=== PATIENT | female | born 1970 | race Caucasian/White ===

== ENCOUNTER 2017-06-29 12:37 | Outpatient (CLI) | payer BC, OTHER ==
--- NOTE | 2017-06-29 13:56 | Ultrasound Report ---
RENAL ULTRASOUND: 06/29/2017 CLINICAL INDICATION: Ectopic kidney. TECHNIQUE: Real-time sonographic vascular imaging was performed by the property management accountant through the kidney s utilizing both color-flow and Doppler spectral analysis. Multiple account services representative static images wer e saved for review. FINDINGS: There is a crossed fused ectopia present, with the right portion of the renal moiety measu ring 14 x 6.3 x 4.6 cm, and the left portion, anterior to the spine, measuring 8.2 x 3.6 x 2.9 cm. Th ere is mild dilatation of the renal pelves, without radha hydronephrosis. No solid renal lesion is id entified. Prevoid, the bladder measures 10.1 x 5.3 x 8.8 cm, yielding a prevoid volume of 243 mL. A 12 mL postv oid residual is noted. No focal bladder lesion is seen. Bilateral ureteral jets are identified. 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 NO SOLID RENAL MASS IS APPRECIATED. NO SIGNIFICANT POSTVOID RESIDUAL. JOB #: [id number] EXT JOB #:[id number]
== END 2017-06-29 12:38 | disposition home or self-care (01) ==
LOC: DI 12:37
PROVIDERS: ATTEND Physician Assistant
DX: R07.9 Chest pain, unspecified (principal); Q63.2 Ectopic kidney; E78.5 Hyperlipidemia, unspecified; Z82.49 Family history of ischemic heart disease and other diseases of the circulatory system
CPT/HCPCS: 76770; 93306

== ENCOUNTER 2017-07-05 09:19 | Outpatient (CLI) | payer OTHER ==
--- NOTE | 2017-07-06 17:18 | Mammography Report ---
DIGITAL SCREENING MAMMOGRAM: 07/05/2017 CLINICAL INDICATION: A 46-year-old with history of benign left breast biopsy, bilateral implants for screening. TECHNIQUE: Routine CC and MLO projections as well as bilateral implant displaced views were obtained of the breasts. COMPARISON: 07/25/2013 The breasts demonstrate scattered fibroglandular densities bilaterally. Bilateral subglandular silic one implants are stable. A few punctate, typically benign calcifications are present. No suspicious masses, clustered microcalcifications, or regions of architectural distortion are identified. IMPRESSION: BENIGN FINDINGS. RECOMMENDATION: ROUTINE ANNUAL SCREENING UNLESS OTHERWISE CLINICALLY INDICATED. BIRADS CATEGORY: 2, BENIGN FINDINGS. STANDARD QUALIFYING STATEMENTS 1. This examination was reviewed with the aid of Computed-Aided Detection (CAD). 2. A negative or benign imaging report should not delay biopsy if clinically suspicious findings are present. Consider surgical consultation if warranted. More than 5% of cancers are not identified b y imaging. 3. Dense breasts may obscure an underlying neoplasm. JOB #: [id number] EXT JOB #:[id number]
== END 2017-07-05 09:20 | disposition home or self-care (01) ==
LOC: DI 09:19 → DI.S 09:20
PROVIDERS: ATTEND Physician Assistant
DX: Z12.31 Encounter for screening mammogram for malignant neoplasm of breast (principal)
CPT/HCPCS: 77067

== ENCOUNTER 2018-12-14 13:07 | Outpatient (CLI) | payer BC ==
--- NOTE | 2018-12-14 15:48 | XRAY Report ---
Reason: UNSPECIFIED INJURY OF LEFT LOWER LEG Procedure Date: 12/14/2018 Accession Number: [id number] / [id number] Procedure: XR - Tib/Fib LT CPT Code: FULL RESULT: EXAM: LEFT TIBIA/FIBULA RADIOGRAPHY EXAM DATE: 12/14/2018 01:19 PM. CLINICAL HISTORY: Impact injury of left lower leg with large hematoma. Injury two weeks ago. COMPARISON: None. TECHNIQUE: 2 views. FINDINGS: Bones: Normal. No fracture or bone lesion. Joints: The visualized knee and ankle joints are normal. No effusions. Soft Tissues: Normal. No soft tissue swelling. IMPRESSION: Normal tibia/fibula radiography. RADIA
== END 2018-12-14 13:08 | disposition home or self-care (01) ==
LOC: DI 13:07
PROVIDERS: ATTEND Physician Assistant
DX: S89.92XA Unspecified injury of left lower leg, initial encounter (principal)

== ENCOUNTER 2018-12-28 07:12 | Outpatient (CLI) | payer BC ==
--- NOTE | 2018-12-29 06:51 | Ultrasound Report ---
Reason: ECTOPIC KIDNEY,UNSPECIFIED INJURY OF LEFT LOWER LE Procedure Date: 12/28/2018 Accession Number: [id number] / [id number] Procedure: US - Retroperitoneal CPT Code: FULL RESULT: EXAM: RENAL ULTRASOUND EXAM DATE: 12/28/2018 08:16 AM. CLINICAL HISTORY: Ectopic kidney, left lower extremity injury. COMPARISON: RETROPERITONEAL 06/29/2017 12:48 PM. TECHNIQUE: Real-time scanning was performed with static images obtained. FINDINGS: Cross fused renal ectopia are present with a component in the right renal fossa and the left component anterior to the spine as before. Right component: 12.3 x 4.8 x 5.9 cm. No calculi, masses or hydronephrosis. Left component: 10.0 x 4.0 x 4.9 cm. Asymmetrically small. No calculi, masses or hydronephrosis evident. Bladder: Two right sided ureteral jets are visible. The prevoid bladder volume was 275 cc. The postvoid bladder volume was 22 cc. Other: None. IMPRESSION: Cross fused renal ectopia as before without evidence of hydronephrosis. No masses or calculi. RADIA
== END 2018-12-28 07:13 | disposition home or self-care (01) ==
LOC: DI 07:12
PROVIDERS: ATTEND Physician Assistant
DX: Q63.2 Ectopic kidney (principal)
CPT/HCPCS: 76770

== ENCOUNTER 2019-01-24 14:31 | Outpatient (CLI) | payer BC ==
--- NOTE | 2019-01-25 11:15 | Mammography Report ---
Reason: ENCOUNTER FOR SCREENING MAMMOGRAM FOR MALIGNANT NE Procedure Date: 01/24/2019 Accession Number: [id number] / [id number] Procedure: [facility] - Screening Mammo Impl w/El CPT Code: FULL RESULT: EXAM: Screening Mammo Impl w/El DATE: 01/24/2019 3:01 PM CLINICAL HISTORY: Routine screening TECHNIQUE: (B) - Bilateral CC and MLO views were obtained. Additional bilateral implant displaced views are performed. COMPARISON: 07/05/2017 and 07/25/2013 PARENCHYMAL PATTERN: (A) - The breasts demonstrate scattered fibroglandular densities bilaterally. FINDINGS: There is no significant interval change. There are no suspicious masses, calcifications, or areas of distortion. Bilateral implants are stable. IMPRESSION: Negative examination. BI-RADS category 1. RECOMMENDATION: (ANNUAL) - Recommend routine annual screening mammography. BI-RADS CATEGORY: (1) - Negative. STANDARD QUALIFYING STATEMENTS: 1. This examination was not reviewed with the aid of Computer-Aided Detection (CAD). 2. A negative or benign imaging report should not preclude biopsy if clinically suspicious findings are present. 3. Dense breasts may obscure an underlying neoplasm. 4. This examination was reviewed with the aid of 3D breast imaging (tomosynthesis).
== END 2019-01-24 14:32 | disposition home or self-care (01) ==
LOC: DI 14:31
PROVIDERS: ATTEND Physician Assistant
DX: Z12.31 Encounter for screening mammogram for malignant neoplasm of breast (principal)
CPT/HCPCS: 77063; 77067

== ENCOUNTER 2020-06-12 11:44 | Outpatient (CLI) | payer BC ==
--- NOTE | 2020-06-12 14:32 | CARDIAC PROCEDURE NOTE ---
DATE OF SERVICE: 06/12/2020 Physician: Christina Sánchez MD, [facility] INDICATION: Shortness of breath. CARDIAC RISK FACTORS: Postmenopausal status, current smoker, elevated cholesterol, family history of early heart disease (in her father who had an VT at age 50). PROCEDURE: After signing informed consent, the patient underwent a Chaim- protocol treadmill stress test. No imaging was ordered with this test. RESTING HEART RATE: 82. PEAK HEART RATE: 150 (90% predicted maximum heart rate for age). RESTING BLOOD PRESSURE: 124/76. PEAK BLOOD PRESSURE: 160/83, which occurred in early recovery; her blood pressure in the final stage of exercise was 152/76. The patient exercised for 3 minutes 20 seconds on a Chaim-protocol treadmill stress test. She achieved a peak heart rate of 150 (90% PMHR) and 7 METs. She developed fatigue and shortness of breath quickly, rated her perceived exertion at 18/20 on the Ken scale at peak. She denied any chest pain. She had significant shortness of breath at peak. Oxygen saturation was 97-98% on room air throughout the test. RESTING EKG: Normal sinus rhythm, inverted T-wave in lead III and flat T-wave in aVF. EKG AT PEAK: No new ST segment or T-wave changes. SUMMARY 1. Mildly abnormal resting EKG. 2. Poor exercise tolerance. 3. No ischemic changes noted by EKG criteria on this stress test at an adequate level of stress achieved. 4. No imaging was ordered with this test. 5. This patient's cardiac risk based on all the above: Moderate (due to her risk factors). RECOMMENDATIONS 1. Cigarette smoking cessation should be done and was discussed with the patient. 2. Recommend pulmonary function testing and Echocardiogram. cc: RENEE Lanier TD: 06/12/2020 13:38 ISAIAH
== END 2020-06-12 11:45 | disposition home or self-care (01) ==
LOC: DI 11:44
PROVIDERS: ATTEND Registered Nurse
DX: R94.31 Abnormal electrocardiogram [ECG] [EKG] (principal); E78.00 Pure hypercholesterolemia, unspecified; F17.200 Nicotine dependence, unspecified, uncomplicated; Z82.49 Family history of ischemic heart disease and other diseases of the circulatory system; Z78.0 Asymptomatic menopausal state
CPT/HCPCS: 93016; 93017; 93018

== ENCOUNTER 2020-07-03 08:26 | Outpatient (CLI) | payer BC ==
[2020-07-03 15:27] LABS: BASOPHILS % (AUTO) 0.6 %; EOSINOPHILS # (AUTO) 0.1 10^3/uL (0.0-0.7); EOSINOPHILS % (AUTO) 1.7 %; HGB - HEMOGLOBIN 13.2 g/dL (12.0-16.0); LYMPHOCYTES % (AUTO) 46.3 %; MEAN CORPUSCULAR HEMOGLOBIN 31.8 pg (27.0-31.0); MEAN CORPUSCULAR HGB CONC 32.8 g/dL (32.0-36.0); MEAN CORPUSCULAR VOLUME 97.1 fL (81.0-99.0); MEAN PLATELET VOLUME 9.3 fL (7.9-10.8); MONOCYTES # (AUTO) 0.4 10^3/uL (0.0-1.0); NEUTROPHILS % (AUTO) 45.1 %; PLT - PLATELET COUNT 364 10^3/uL (130-450); RED BLOOD COUNT 4.15 10^6/uL (4.20-5.40); RED CELL DISTRIBUTION WIDTH 12.6 % (12.0-15.0); WHITE BLOOD COUNT 6.6 x10^3/uL (4.8-10.8)
== END 2020-07-03 08:27 | disposition home or self-care (01) ==
LOC: LAB.S 08:26
PROVIDERS: ATTEND Registered Nurse
DX: R06.09 Other forms of dyspnea (principal)
CPT/HCPCS: 36415; 85025

== ENCOUNTER 2020-07-25 09:25 | Outpatient (CLI) | payer BC | END 2020-07-25 09:26 | disposition home or self-care (01) | LOC: RT 09:25 | PROVIDERS: ATTEND Registered Nurse | DX: R06.09 Other forms of dyspnea (principal) | CPT/HCPCS: 94060 ==

== ENCOUNTER 2020-07-28 09:07 | Outpatient (CLI) | payer BC ==
--- NOTE | 2020-07-29 14:37 | Mammography Report ---
BILATERAL DIGITAL SCREENING MAMMOGRAM 3D/2D WITH AUGMENTATION: 07/28/2020 CLINICAL: Routine screening. Comparison is made to exams dated: 01/24/2019 mammogram, 07/05/2017 mammogram, and 07/25/2013 mammogra m - [facility]. There are scattered fibroglandular elements in both breasts. Bilateral breast implants are stable. No significant masses, calcifications, or other findings are seen in either breast. There has been no significant interval change. IMPRESSION: NEGATIVE There is no mammographic evidence of malignancy. A 1 year screening mammogram is recommended. This exam was interpreted at Station ID: [id number]. NOTE: For mammograms, a report in lay terms will be sent to the patient. Approximately 15% of breast malignancies will not be visualized mammographically. In the management of a palpable breast mass, a negative mammogram must not discourage biopsy of a clinically suspicious lesion. Electronically Signed By: Prosper Sloan M.D. [facility] [place]:07/28/2020 14:57:36 ACR BI-RADS Category 1: Negative 3341F PARENCHYMAL PATTERN: (A) - The breast(s) demonstrate(s) scattered fibroglandular densities. BI-RADS CATEGORY: (1) - 1 RECOMMENDATION: (ANNUAL) - Recommend routine annual screening mammography. [id number] 1 year screening LATERALITY: (B)
== END 2020-07-28 09:08 | disposition home or self-care (01) ==
LOC: DI 09:07
PROVIDERS: ATTEND Registered Nurse
DX: Z12.31 Encounter for screening mammogram for malignant neoplasm of breast (principal); Z98.82 Breast implant status
CPT/HCPCS: 77063; 77067

== ENCOUNTER 2020-09-03 06:32 | Day surgery (SDC) | payer BC ==
[2020-09-03] MEDS ORDERED: fentaNYL 250 MCG/5 ML VIAL IVP ONE (06:33)
[2020-09-03] MEDS ORDERED: MIDAZOLAM 2 MG/2 ML VIAL IVP ONE (06:33)
[2020-09-03] MEDS ORDERED: LACTATED RINGERS 1,000 ML IV ONE ×2 (06:33→08:13)
[2020-09-03 08:37] VITALS: BP 116/86
== END 2020-09-03 06:33 | disposition home or self-care (01) ==
LOC: SDS 06:32
PROVIDERS: ATTEND Surgery
DX: Z12.11 Encounter for screening for malignant neoplasm of colon (principal); F17.210 Nicotine dependence, cigarettes, uncomplicated

== ENCOUNTER 2023-04-06 09:56 | Outpatient (CLI) | payer BC ==
--- NOTE | 2023-04-07 13:25 | Mammography Report ---
BILATERAL DIGITAL SCREENING MAMMOGRAM 3D/2D WITH AUGMENTATION: 04/06/2023 CLINICAL: Routine screening. Family history of breast cancer. Comparison is made to exams dated: 07/28/2020 mammogram, 01/24/2019 mammogram, and 07/05/2017 mammogram - [facility]. There are scattered areas of fibroglandular density in both breasts (category b / 25%-50% glandular t issue). Bilateral breast implants are stable. No significant masses, calcifications, or other findings are seen in either breast. There has been no significant interval change. IMPRESSION: NEGATIVE There is no mammographic evidence of malignancy. A 1 year screening mammogram is recommended. Based on the Tyrer Cuzick model (a risk assessment model) the patients lifetime risk is 7.5% and her 10 year risk is 2.0%. According to the ACR, ACS, and NCCN guidelines, an annual breast MRI exam to g with mammogram is recommended if the patients lifetime risk is 20% or greater. This exam was interpreted at Station ID: [id number]. NOTE: For mammograms, a report in lay terms will be sent to the patient. Approximately 15% of breast malignancies will not be visualized mammographically. In the management of a palpable breast mass, a negative mammogram must not discourage biopsy of a clinically suspicious lesion. Electronically Signed By: Chapito brar/umesh:04/06/2023 13:10:43 letter sent: No_Letter ACR BI-RADS Category 1: Negative 3341F PARENCHYMAL PATTERN: (A) - The breast(s) demonstrate(s) scattered fibroglandular densities. BI-RADS CATEGORY: (1) - 1 Mammogram [id number] 1 year screening LATERALITY: (B)
== END 2023-04-06 09:57 | disposition home or self-care (01) ==
LOC: DI.S 09:56
DX: Z12.31 Encounter for screening mammogram for malignant neoplasm of breast (principal); Z80.3 Family history of malignant neoplasm of breast

== ENCOUNTER 2023-07-25 09:45 | Outpatient (CLI) | payer BC ==
--- NOTE | 2023-07-25 11:23 | CT Report ---
PROCEDURE: Low Dose Lung Cancer Screen INDICATIONS: SMOKER TECHNIQUE: A CT scan of the chest was performed. Intravenous contrast media was not administered. Images were re corded and evaluated at appropriate window settings. Reformats: axial MIP of the chest, coronal and s agittal. For radiation dose reduction, the following was used: automated exposure control, adjustment of mA and/or kV according to patient size. COMPARISON: None. FINDINGS: Image quality: Excellent. Prior cancer history: No. Lungs and pleura: No pleural effusions. No pneumothorax. No suspicious pulmonary nodules which requi re follow up. Mediastinum: Heart size is normal. No pericardial effusion. No large vessel abnormality. No mediastin al adenopathy by size criteria. Chest wall and lower neck: Thyroid is unremarkable. No axillary or supraclavicular adenopathy by size . Bones: No aggressive osseous abnormality. Upper Abdomen: Hepatic steatosis. 3.9 cm cyst in segment 2. A couple of hypoattenuating lesions at th e liver dome, measuring 2.0 cm (series 2, image 45) and 2.3 cm (series 2, image 48). Left nephrectomy . IMPRESSION: Lung RAD: 1 - Negative. Recommendation: Continue annual screening in 12 Months with LDCT Non-Lung Significant Findings: Mass - Liver. While this finding could represent focal sparing of stea tosis or a benign hemangioma, given underlying steatosis, recommend MRI with contrast (liver mass pro tocol). Reviewed by: Landen Bhatti on 07/25/2023 11:22 AM PDT Approved by: Landen Bhatti on 07/25/2023 11:22 AM PDT Station ID: [id number]
== END 2023-07-25 09:46 | disposition home or self-care (01) ==
LOC: DI 09:45
PROVIDERS: ATTEND Registered Nurse
DX: Z12.2 Encounter for screening for malignant neoplasm of respiratory organs (principal); F17.200 Nicotine dependence, unspecified, uncomplicated

== ENCOUNTER 2023-07-26 08:49 | Outpatient (CLI) | payer BC ==
--- NOTE | 2023-07-26 15:24 | XRAY Report ---
PROCEDURE: Chest 2 View X-Ray INDICATIONS: PRE SURGERY EVALUATION TECHNIQUE: 2 views of the chest were acquired. COMPARISON: None. FINDINGS: Surgical changes and devices: None. Lungs and pleura: No pleural effusions or pneumothorax. Lungs are clear. Mediastinum: Mediastinal contours appear normal. Heart size is normal. Bones and chest wall: No suspicious bony lesions. Overlying soft tissues appear unremarkable. IMPRESSION: No acute cardiopulmonary process. Reviewed by: Yuki Lou MD on 07/26/2023 3:22 PM PDT Approved by: Yuki Lou MD on 07/26/2023 3:22 PM PDT Station ID: [id number]
== END 2023-07-26 08:50 | disposition home or self-care (01) ==
LOC: DI.S 08:49
PROVIDERS: ATTEND Registered Nurse
DX: Z01.818 Encounter for other preprocedural examination (principal)

== ENCOUNTER 2023-08-26 12:51 | Outpatient (CLI) | payer BC ==
[~2023-08-26 12:51] MED LIST: GADOTERATE MEGLUMINE 10 MMOL/20 ML VIAL ONE
[2023-08-26] MEDS ORDERED: GADOTERATE MEGLUMINE 10 MMOL/20 ML VIAL IVP ONE (13:48)
--- NOTE | 2023-08-29 12:12 | MRI Report ---
PROCEDURE: ABDOMEN W/WO INDICATIONS: LIVER MASS CONTRAST: clariscan 17.6 TECHNIQUE: Coronal ultra fast SE, axial 2D spoiled GE in- and [id number]; axial breath-hold T2 fast SE. Dynam ic axial ultra fast GE during the administration of contrast; post-contrast coronal ultra fast GE or 2D spoiled GE with fat saturation from the hepatic dome to the iliac crests. Optional diffusion weig hted imaging and ADC may be performed. COMPARISON: Ultrasound 06/19/2020 FINDINGS: Image quality: Excellent. Lung bases and heart: Unremarkable. Liver: Marked hepatic steatosis. Benign hepatic cyst measuring 4.0 cm in segment 2 (series 4, image 8 ). There are multiple liver lesions which demonstrate imaging characteristics is most consistent with hemangiomas. These are T2 intermediate, with either flash filling or discontinuous arterial enhancem ent with delayed filling. These include: -1.6 cm in segment 8 (series 4, image 6). -1.0 cm in segment 2 (series 4, image 7). -2.2 cm in segment 7/8 (series 4, image 9). -0.8 cm in segment 6 (series 4, image 17). Additionally, in segment IVb, there is a 2.6 cm lesion which is T1 hypointense, T2 isointense which d emonstrates flash filling and dilating on the delayed sequences (series 4, image 15 and series 11, im age 35). No T2 hyperintense scar. No restricted diffusion. Gallbladder and biliary tree: Cholelithiasis without wall thickening. No biliary dilation. Spleen: No splenomegaly. Pancreas: No pancreatic ductal dilation. Adrenals: No adrenal nodule. Kidneys and ureters: Crossed fused renal ectopia, with both kidneys and the right renal fossa. Bowel and peritoneum: No bowel distension. No pathologic free fluid. Lymph nodes: No central or retroperitoneal adenopathy. Vessels: No infrarenal aortic aneurysm. Bones: No aggressive osseous abnormality. Other: No significant ventral hernia. IMPRESSION: 2.6 cm lesion in segment IVb of the liver which has imaging characteristics of either an FNH or hepat ic adenoma. There are additional benign hemangiomas are present. Moderate to severe hepatic steatosis. In the absence of alcohol use or other confounding factors, el evated LFTs may indicate nonalcoholic steatohepatitis (STANLEY). Cross fused renal ectopia. Reviewed by: Landen Bhatti on 08/29/2023 11:11 AM DEJA Approved by: Landen Bhatti on 08/29/2023 11:11 AM [facility] Station ID: [id number]
== END 2023-08-26 12:52 | disposition home or self-care (01) ==
LOC: DI 12:51
PROVIDERS: ATTEND Registered Nurse
DX: R16.0 Hepatomegaly, not elsewhere classified (principal); R93.2 Abnormal findings on diagnostic imaging of liver and biliary tract; D18.09 Hemangioma of other sites; K76.0 Fatty (change of) liver, not elsewhere classified; Q63.2 Ectopic kidney
CPT/HCPCS: 74183; A9575